=== PATIENT | male | born 1960 | race Caucasian/White ===

== ENCOUNTER → 2017-08-14 | Outpatient (REF) | payer OTHER | LOC: M LAB REF 10:26 | PROVIDERS: ATTEND Surgery | DX: R82.90 Unspecified abnormal findings in urine (principal) ==

== ENCOUNTER → 2017-11-21 | Outpatient (CLI) | payer OTHER ==
[~2017-11-21] MED LIST: ISOVUE-370 76% 100ML VIAL (Q9967) As Ordered
== END ==
LOC: M RAD 12:45
DX: R31.0 Gross hematuria (principal); N28.1 Cyst of kidney, acquired; N40.1 Benign prostatic hyperplasia with lower urinary tract symptoms; K40.90 Unilateral inguinal hernia, without obstruction or gangrene, not specified as recurrent; K57.30 Diverticulosis of large intestine without perforation or abscess without bleeding
CPT/HCPCS: Q9967

== ENCOUNTER 2018-03-10 21:12 | Observation (INO) | payer OTHER ==
[2018-03-10] MEDS: METAMUCIL (PSYLLIUM) PACKET PO (21:00)
[2018-03-10 22:41] LABS: BASO # 0.1 10^3/uL (0.0-0.2); BASO % 0.7 % (0.0-1.0); EOS # 0.2 10^3/uL (0.0-0.50); EOS % 2.3 % (0.0-3.0); HEMATOCRIT 45.5 % (42.0-52.0); HEMOGLOBIN 15.7 g/dl (13.5-17.5); IMMATURE GRANULOCYTE % 0.5 % (0-3.0); LYMPH # 3.3 10^3/uL (1.5-4.5); LYMPH % 33.6 % (24.0-44.0); MEAN CORPUSCULAR HEMOGLOBIN 31.5 pg (27.0-33.0); MEAN CORPUSCULAR HGB CONC 34.5 g/dl (32.0-36.5); MEAN CORPUSCULAR VOLUME 91.4 fl (80.0-96.0); MONO % 10.4 % (0.0-5.0); NEUTROPHILS # 5.2 10^3/uL (1.8-7.7); NEUTROPHILS % 52.5 % (36.0-66.0); PLATELET COUNT, AUTOMATED 211 10^3/uL (150-450); RED BLOOD COUNT 4.98 10^6/uL (4.30-6.10); RED CELL DISTRIBUTION WIDTH 13.2 % (11.5-14.5); WHITE BLOOD COUNT 9.9 10^3/uL (4.0-10.0)
[2018-03-10 22:46] LABS: INR 1.01; PARTIAL THROMBOPLASTIN TIME 33.6 SECONDS (25.4-37.6); PROTHROMBIN TIME 13.4 SECONDS (12.1-14.4)
[2018-03-10] MEDS: ACETAMINOPHEN TAB 650MG DOSE (2X325MG) PO (22:55)
[2018-03-10 23:14] LABS: BLOOD UREA NITROGEN 18 MG/DL (7-18); CALCIUM LEVEL 8.8 MG/DL (8.5-10.1); CARBON DIOXIDE LEVEL 25 MEQ/L (21-32); CHLORIDE LEVEL 108 MEQ/L (98-107); CK-MB VALUE MASS 1.4 NG/ML (<3.6); CPK CREATINE PHOSPHOKINASE 112 U/L (39-308); GLUCOSE, FASTING 105 MG/DL (70-100); MB/CK RELATIVE INDEX 1.25 (< OR =4); POTASSIUM SERUM 4.1 MEQ/L (3.5-5.1); TROPONIN I < 0.02 NG/ML (< 0.10)
[2018-03-10 23:15] LABS: ANION GAP 7 MEQ/L (8-16); SODIUM LEVEL 140 MEQ/L (136-145)
[2018-03-11] MEDS ORDERED: GLUCOSE 4 GM CHEW TABLET PO (01:30)
[2018-03-11] MEDS ORDERED: DEXTROSE 50% 50 ML SYRINGE IV (01:30)
[2018-03-11] MEDS ORDERED: DOCUSATE SODIUM 100 MG CAP PO (01:30)
[2018-03-11] MEDS ORDERED: GLUCAGON FOR INJ 1 MG VIAL (J1610) SC (01:30)
[2018-03-11] MEDS: NS 1,000 ML IV (01:30)
[2018-03-11] MEDS ORDERED: ACETAMINOPHEN TAB 650MG DOSE (2X325MG) PO (01:45)
[2018-03-11] MEDS: ASPIRIN 81 MG ENTERIC TAB PO ×2 (03:22→21:19)
[2018-03-11] MEDS: TAMSULOSIN 0.4 MG CAP PO ×2 (03:22→21:19)
[2018-03-11] MEDS: CLOPIDOGREL 75 MG TAB PO ×2 (03:23→21:19)
[2018-03-11] MEDS: ATORVASTATIN 20 MG TAB PO ×2 (03:23→21:19)
[2018-03-11] MEDS: CARVedilol 6.25 MG TAB PO ×2 (03:23→21:19)
[2018-03-11 06:34] LABS: BEDSIDE GLUCOSE 111 MG/DL (70-105)
[2018-03-11 06:37] LABS: ESTIMATED AVERAGE GLUCOSE 146 MG/DL (60-110); HEMOGLOBIN A1c 6.7 %
[2018-03-11 06:48] LABS: CHOLESTEROL LEVEL 112 MG/DL (<200); CHOLESTEROL RISK RATIO 5.333 (<5); HDL CHOLESTEROL 21 MG/DL (>40); NON-HDL-C 91 MG/DL; TRIGLYCERIDES LEVEL 270 MG/DL (<150); TROPONIN I < 0.02 NG/ML (< 0.10)
[2018-03-11] MEDS: ENOXAPARIN 40 MG/0.4 ML SYRINGE (J1650) SC (08:56)
[2018-03-11 11:27] LABS: BEDSIDE GLUCOSE 174 MG/DL (70-105)
[2018-03-11] MEDS: HumaLOG INSULIN (NovoLOG) PER UNIT SC ×3 (12:51→21:05)
[2018-03-11 16:35] LABS: BEDSIDE GLUCOSE 108 MG/DL (70-105)
[2018-03-11 20:38] LABS: BEDSIDE GLUCOSE 126 MG/DL (70-105)
[2018-03-11] MEDS: METAMUCIL (PSYLLIUM) PACKET PO (21:19)
[2018-03-12 06:26] LABS: HEMATOCRIT 46.2 % (42.0-52.0); HEMOGLOBIN 15.7 g/dl (13.5-17.5); MEAN CORPUSCULAR HEMOGLOBIN 31.1 pg (27.0-33.0); MEAN CORPUSCULAR VOLUME 91.5 fl (80.0-96.0); PLATELET COUNT, AUTOMATED 192 10^3/uL (150-450); RED BLOOD COUNT 5.05 10^6/uL (4.30-6.10); RED CELL DISTRIBUTION WIDTH 13.2 % (11.5-14.5)
[2018-03-12 06:46] LABS: ANION GAP 6 MEQ/L (8-16); BLOOD UREA NITROGEN 18 MG/DL (7-18); CALCIUM LEVEL 8.4 MG/DL (8.5-10.1); CARBON DIOXIDE LEVEL 28 MEQ/L (21-32); CHLORIDE LEVEL 107 MEQ/L (98-107); CREATININE FOR GFR 1.21 MG/DL (0.70-1.30); GLOMERULAR FILTRATION RATE > 60.0 (>56); GLUCOSE, FASTING 113 MG/DL (70-100); POTASSIUM SERUM 3.8 MEQ/L (3.5-5.1); SODIUM LEVEL 141 MEQ/L (136-145)
[2018-03-12] MEDS: HumaLOG INSULIN (NovoLOG) PER UNIT SC (08:44)
[2018-03-12] MEDS: ENOXAPARIN 40 MG/0.4 ML SYRINGE (J1650) SC (08:45)
[2018-03-12 11:35] LABS: BEDSIDE GLUCOSE 123 MG/DL (70-105)
== END 2018-03-12 11:59 ==
LOC: M ED INP 21:13 → M MSPAV 03-11 04:13 → M ED 21:12
DX: G45.9 Transient cerebral ischemic attack, unspecified (principal); E86.0 Dehydration; I25.10 Atherosclerotic heart disease of native coronary artery without angina pectoris; I10 Essential (primary) hypertension; E78.5 Hyperlipidemia, unspecified; N40.0 Benign prostatic hyperplasia without lower urinary tract symptoms; F17.210 Nicotine dependence, cigarettes, uncomplicated; Z79.82 Long term (current) use of aspirin; Z79.899 Other long term (current) drug therapy; Z79.02 Long term (current) use of antithrombotics/antiplatelets
CPT/HCPCS: J1650

== ENCOUNTER 2018-06-26 01:18 | Emergency (ER) | payer OTHER ==
[2018-06-26] MEDS: NS 1,000 ML IV (02:00)
[2018-06-26 02:31] LABS: HEMATOCRIT 45.5 % (42.0-52.0); HEMOGLOBIN 15.8 g/dl (13.5-17.5); MEAN CORPUSCULAR HEMOGLOBIN 31.7 pg (27.0-33.0); MEAN CORPUSCULAR HGB CONC 34.7 g/dl (32.0-36.5); MEAN CORPUSCULAR VOLUME 91.4 fl (80.0-96.0); RED BLOOD COUNT 4.98 10^6/uL (4.30-6.10); RED CELL DISTRIBUTION WIDTH 13.2 % (11.5-14.5); WHITE BLOOD COUNT 11.5 10^3/uL (4.0-10.0)
[2018-06-26 02:32] LABS: BASO # 0.1 10^3/uL (0.0-0.2); BASO % 0.6 % (0.0-1.0); EOS # 0.2 10^3/uL (0.0-0.50); IMMATURE GRANULOCYTE % 0.6 % (0-3.0); LYMPH # 3.2 10^3/uL (1.5-4.5); MONO # 1.1 10^3/uL (0.0-0.8); MONO % 9.3 % (0.0-5.0); NEUTROPHILS # 6.8 10^3/uL (1.8-7.7); NEUTROPHILS % 59.5 % (36.0-66.0); PLATELET COUNT, AUTOMATED 186 10^3/uL (150-450)
[2018-06-26 02:48] LABS: PROTHROMBIN TIME 13.3 SECONDS (12.1-14.4)
[2018-06-26 02:54] LABS: ALBUMIN 3.9 GM/DL (3.2-5.2); ALBUMIN/GLOBULIN RATIO 1.18 (1.00-1.93); ALKALINE PHOSPHATASE 67 U/L (45-117); ALT/SGPT 22 U/L (12-78); ANION GAP 7 MEQ/L (8-16); AST/SGOT 17 U/L (7-37); BILIRUBIN,DIRECT 0.1 MG/DL (0.0-0.2); BILIRUBIN,TOTAL 0.5 MG/DL (0.2-1.0); BLOOD UREA NITROGEN 16 MG/DL (7-18); CARBON DIOXIDE LEVEL 27 MEQ/L (21-32); CHLORIDE LEVEL 104 MEQ/L (98-107); GLOMERULAR FILTRATION RATE > 60.0 (>49); GLUCOSE, FASTING 116 MG/DL (70-100); LIPASE 185 U/L (73-393); POTASSIUM SERUM 3.9 MEQ/L (3.5-5.1); SODIUM LEVEL 138 MEQ/L (136-145); TOTAL PROTEIN 7.2 GM/DL (6.4-8.2)
[2018-06-26 03:25] LABS: KETONE, URINE AUTO RFX NEGATIVE (NEGATIVE); LEUKOCYTE ESTERASE UR AUTO RFX NEGATIVE (NEGATIVE); NITRITE, URINE AUTO RFX NEGATIVE (NEGATIVE); RBC, URINE AUTO RFX TNTC /HPF (0-3); SPECIFIC GRAVITY UR AUTO RFX 1.005 (1.002-1.035); SQUAM EPITHELIAL CELL UR AURFX 0 /HPF (0-6); WBC, URINE AUTO RFX 11 /HPF (0-3)
== END 2018-06-26 06:00 | disposition home or self-care (01) ==
LOC: M ED 01:18
DX: R33.9 Retention of urine, unspecified (principal); R31.0 Gross hematuria; N40.0 Benign prostatic hyperplasia without lower urinary tract symptoms; I25.2 Old myocardial infarction; I51.9 Heart disease, unspecified; F17.210 Nicotine dependence, cigarettes, uncomplicated; Z79.899 Other long term (current) drug therapy; Z79.02 Long term (current) use of antithrombotics/antiplatelets; Z79.84 Long term (current) use of oral hypoglycemic drugs; Z79.82 Long term (current) use of aspirin
CPT/HCPCS: 83690

== ENCOUNTER → 2018-07-03 | Outpatient (REF) | payer OTHER ==
[2018-07-03 14:30] LABS: BLOOD UREA NITROGEN 15 MG/DL (7-18)
[2018-07-03 14:30] LABS: CREATININE FOR GFR 1.14 MG/DL (0.70-1.30); GLOMERULAR FILTRATION RATE > 60.0 (>49)
== END ==
LOC: M LAB REF 13:25
DX: R31.9 Hematuria, unspecified (principal)

== ENCOUNTER → 2018-07-04 | Outpatient (CLI) | payer OTHER | LOC: M RAD 12:05 | DX: R31.9 Hematuria, unspecified (principal); K57.30 Diverticulosis of large intestine without perforation or abscess without bleeding; N40.0 Benign prostatic hyperplasia without lower urinary tract symptoms; N28.1 Cyst of kidney, acquired | CPT/HCPCS: Q9967 ==

== ENCOUNTER 2018-08-16 19:50 | Emergency (ER) | payer OTHER ==
[2018-08-16 20:56] LABS: BASO # 0.1 10^3/uL (0.0-0.2); BASO % 0.5 % (0.0-1.0); EOS # 0.2 10^3/uL (0.0-0.50); EOS % 2.1 % (0.0-3.0); HEMATOCRIT 44.5 % (42.0-52.0); HEMOGLOBIN 15.3 g/dl (13.5-17.5); IMMATURE GRANULOCYTE % 0.7 % (0-3.0); LYMPH # 3.2 10^3/uL (1.5-4.5); LYMPH % 31.8 % (24.0-44.0); MEAN CORPUSCULAR HEMOGLOBIN 31.9 pg (27.0-33.0); MEAN CORPUSCULAR HGB CONC 34.4 g/dl (32.0-36.5); MEAN CORPUSCULAR VOLUME 92.7 fl (80.0-96.0); MONO # 1.1 10^3/uL (0.0-0.8); MONO % 10.6 % (0.0-5.0); NEUTROPHILS # 5.5 10^3/uL (1.8-7.7); NEUTROPHILS % 54.3 % (36.0-66.0); PLATELET COUNT, AUTOMATED 204 10^3/uL (150-450); RED CELL DISTRIBUTION WIDTH 13.5 % (11.5-14.5)
[2018-08-16 21:10] LABS: INR 0.94; PROTHROMBIN TIME 12.7 SECONDS (12.1-14.4)
[2018-08-16 21:11] LABS: PARTIAL THROMBOPLASTIN TIME 30.9 SECONDS (25.4-37.6)
[2018-08-16 21:22] LABS: ANION GAP 6 MEQ/L (8-16); BLOOD UREA NITROGEN 18 MG/DL (7-18); CALCIUM LEVEL 8.8 MG/DL (8.8-10.2); CARBON DIOXIDE LEVEL 29 MEQ/L (21-32); CHLORIDE LEVEL 107 MEQ/L (98-107); CPK CREATINE PHOSPHOKINASE 82 U/L (39-308); CREATININE FOR GFR 1.08 MG/DL (0.70-1.30); GLOMERULAR FILTRATION RATE > 60.0 (>49); GLUCOSE, FASTING 88 MG/DL (70-100); MB/CK RELATIVE INDEX 1.83 (< OR =4); POTASSIUM SERUM 4.1 MEQ/L (3.5-5.1); SODIUM LEVEL 142 MEQ/L (136-145); TROPONIN I < 0.02 NG/ML (< 0.10)
[2018-08-16 23:51] LABS: CPK CREATINE PHOSPHOKINASE 82 U/L (39-308); TROPONIN I < 0.02 NG/ML (< 0.10)
== END 2018-08-17 00:09 | disposition home or self-care (01) ==
LOC: M ED 08-17 00:09
DX: R07.89 Other chest pain (principal); E11.9 Type 2 diabetes mellitus without complications; I10 Essential (primary) hypertension; E78.5 Hyperlipidemia, unspecified; F17.200 Nicotine dependence, unspecified, uncomplicated
CPT/HCPCS: 71045